=== PATIENT | female | born 1945 | race Caucasian/White ===

== ENCOUNTER → 2016-07-21 | Outpatient (CLI) | payer MEDICARE | LOC: MC.RAD 10:51 | DX: Z12.31 Encounter for screening mammogram for malignant neoplasm of breast (principal); R92.1 Mammographic calcification found on diagnostic imaging of breast ==

== ENCOUNTER → 2017-07-01 | Outpatient (CLI) | payer MEDICARE | LOC: COL.VAS 12:46 | DX: Z47.89 Encounter for other orthopedic aftercare (principal); M25.562 Pain in left knee; R22.42 Localized swelling, mass and lump, left lower limb ==

== ENCOUNTER → 2018-07-08 | Outpatient (CLI) | payer MEDICARE | LOC: MC.RAD 10:34 | DX: Z12.31 Encounter for screening mammogram for malignant neoplasm of breast (principal) ==

== ENCOUNTER → 2021-06-28 | Outpatient (CLI) | payer MEDICARE | LOC: MC.RAD 13:24 | DX: Z12.31 Encounter for screening mammogram for malignant neoplasm of breast (principal) ==

== ENCOUNTER → 2022-08-08 | Outpatient (CLI) | payer MEDICARE ==
[~2022-08-08] MED LIST: DYAZIDE 25 MG-31 CAP PO; GLUCOPHAGE XR500 M1 PO; PRAVACHOL 40MG40 MG PO; PRINIVIL20 MG PO; PRISTIQ 50 MG T50 MG PO; THIAMINE 1100 MG/TAB PO; TRESIBA FL200 UNIT/1 SQ; VITAMIN D31000 IU PO
== END ==
LOC: MC.RAD 09:06
DX: Z12.31 Encounter for screening mammogram for malignant neoplasm of breast (principal)